=== PATIENT | male | born 1995 | race Caucasian/White ===

== ENCOUNTER 2019-10-06 12:54 | Emergency (ER) | payer BC, OTHER ==
[~2019-10-06] VITALS: Ht 172.7 cm; Wt 50.0 kg
--- NOTE | 2019-10-06 14:31 | REP ---
Three views pelvis and right hip: 10/06/2019. Indication: Pain following injury. Comparison: None. Findings: There is no acute fracture, subluxation or dislocation. No lytic or blastic lesions are present. Impression: No acute osseous injuries of the right hip. Electronically Signed by Wallace Hurtado DO 10/06/2019 02:24 P
[2019-10-06 14:54] VITALS: BP 129/67
== END 2019-10-06 14:55 | disposition home or self-care (01) ==
LOC: M ED 12:54 → EDBD 12:54 → EDSEX 12:54 → M ED 14:55
DX: S70.01XA Contusion of right hip, initial encounter (principal); V03.10XA Pedestrian on foot injured in collision with car, pick-up truck or van in traffic accident, initial encounter; Y99.0 Civilian activity done for income or pay

== ENCOUNTER 2022-05-11 18:48 | Emergency (ER) | payer SELFPAY ==
[~2022-05-11] VITALS: Ht 162.6 cm; Wt 50.0 kg
[2022-05-11 18:49] VITALS: BP 142/91
== END 2022-05-11 22:05 | disposition left against medical advice (07) ==
LOC: M ED 18:48
DX: Z53.21 Procedure and treatment not carried out due to patient leaving prior to being seen by health care provider (principal)